=== PATIENT | female | born 1965 | race Caucasian/White ===

== ENCOUNTER → 2022-10-04 13:49 | Outpatient (BNVA) | payer OTHER, SELFPAY | PROVIDERS: Visit Provider Psychiatry & Neurology Psychiatry | DX: F41.1 Generalized anxiety disorder (principal); F34.1 Dysthymic disorder | CPT/HCPCS: 90833; 99212 ==

== ENCOUNTER → 2022-12-08 12:46 | Outpatient (BNVA) | payer BC, OTHER, SELFPAY | PROVIDERS: Visit Provider Psychiatry & Neurology Psychiatry ==

== ENCOUNTER 2023-10-15 11:41 | Outpatient (AMB) | payer BC, SELFPAY ==
--- NOTE | 2023-10-15 11:40 | A.OFFPSYCH_ITS ---
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 has been on vilazodone clonazepam Past Psychiatric History: hx depression anxiety worse around time of her marriage divorce Mental Status Exam Mental Status Exam Patient Appearance: Well Grooomed Patient Orientation: Person, Place and Situation Level of Consciousness: Awake Patient Behavior: Appropriate Mood Description: Depressed, Flat and Apprehensive Affect Description: Constricted Ability to Follow Directions: Good Speech Pattern: Clear Memory Description: Intact Hallucinations: None Delusions: Not Present Thought Process: Rumination Thought Content: positive for Logical Depressive Symptoms: Increased Anxiety and Loss of Energy Judgement: Good Judgement and Insight: Improved judgment and coping Assessment and Plan Assessment & Plan (1) Generalized anxiety disorder: Status: Acute Code(s): F41.1 - Generalized anxiety disorder (2) Dysthymic disorder: Status: Acute Code(s): F34.1 - Dysthymic disorder Plan pt has been feeling overwhelmed does not want to increase vilazodone was open to trial of doxepin for sleep risks benefits alternatives reviewed with patient has chronic issues related to her niece and her daughter her sister did move out and this had been stressful and problematic when she was living there patient tends to be somewhat dysthymic after a number of years now Medications: New doxepin 10 mg PO BEDTIME 30 caps 3RF Counseling and coordination of Care Details: I spent [] minutes reviewing the record, seeing the patient and documenting in the medical record. Counseling provided to the patient/caregiver as outlined below. Addressed patient/caregiver concerns regarding current medication regime including effective adherence. Addressed patient/caregiver concerns regarding diagnosis and prognosis including accuracy of diagnosis, prognosis over time, impact of diagnosis. Addressed patient/caregiver concerns regarding impact of recent stressors. [facility] Medical History (Updated 10/04/22 @ 13:14 by Amos Servin MD) Generalized anxiety disorder Dysthymic disorder Social History: pt has 2 daughters niece living with her mother anxiety disorder oldest anxiety depression ocd Substance History: ? Trauma History: na Coding Level of Care Code Est Pt Level 4 (87392) Diagnoses Generalized anxiety disorder F41.1 Dysthymic disorder F34.1
== END 2023-10-15 12:10 | disposition home or self-care (01) ==
LOC: HO.HOP 11:41
PROVIDERS: Visit Provider Psychiatry & Neurology Psychiatry
DX: F41.1 Generalized anxiety disorder (principal); F34.1 Dysthymic disorder
CPT/HCPCS: 99214

== ENCOUNTER → 2023-10-15 11:41 | Outpatient (BNVA) | payer BC, OTHER, SELFPAY | PROVIDERS: Visit Provider Psychiatry & Neurology Psychiatry ==

== ENCOUNTER 2024-02-21 10:51 | Outpatient (AMB) | payer BC, SELFPAY ==
--- NOTE | 2024-02-21 11:10 | MHC.OFFVISPS ---
Intake Intake Visit Reasons: depression Allergies No Known Allergies Allergy (Verified 08/24/22 21:54) Medication List - Last Reconciled 02/21/24 by Amos Servin MD clonazepam 0.25 - 0.5 mg (0.5 - 1 x 0.5 mg) PO DAILY PRN 90 days doxepin 10 mg PO BEDTIME propranolol 10 mg PO DAILY PRN 90 days vilazodone 10 mg PO DAILY 90 days HPI- Psychiatric Chief Complaint: depression HPI Narrative: Patient has changed her work setting feels quite supported in current setting. Has chronic difficulty with her daughter who is living with her and does also have chronic stress related to her niece who has been living with her now for number of years and who is having emotional difficulties patient has also been in a relationship and there have been some stress in trying to join family situations and integrating together. Some degree of chronic demoralization does run regularly which is a significant resource for the patient. Has some degree of chronic mild anxiety and mild dysphoria at times. Some difficulty with insomnia Past Psychiatric History: hx depression anxiety worse around time of her marriage divorce Mental Status Exam Mental Status Exam Patient Appearance: Well Grooomed Patient Orientation: Person, Place, Time and Situation Level of Consciousness: Awake Patient Behavior: Appropriate Mood Description: Flat and Apprehensive Affect Description: Constricted Ability to Follow Directions: Good Speech Pattern: Clear Memory Description: Intact Hallucinations: None Delusions: Not Present Thought Process: Rumination Thought Content: positive for Logical Depressive Symptoms: Increased Anxiety and Loss of Energy Judgement: Good Judgement and Insight: Improved judgment and coping but remains under chronic stress Assessment and Plan Assessment & Plan (1) Generalized anxiety disorder: Status: Acute Code(s): F41.1 - Generalized anxiety disorder (2) Dysthymic disorder: Status: Acute Code(s): F34.1 - Dysthymic disorder Plan Patient remains under chronic stress feeling a lot of pressure on herself especially relationship to being the primary breadwinner and managing emotional issues with her daughter and niece. In the past had been overusing alcohol denies issues with that at this time. Has seemed better with doxepin at HS for sleep reviewed potential side effects benefits continue vilazodone 10 mg Medications: Refilled doxepin 10 mg PO BEDTIME 30 caps 3RF vilazodone must administer with a meal/food 10 mg PO DAILY 90 tabs 1RF 90 days Counseling and coordination of Care Details-Self Mgmt counseling: Issues related to chronic stress issues related to family discord integrating boyfriend and relational issues Medication management counseling: Effectiveness and Side effects Diagnosis and Prognosis Counseling: Impact of diagnosis on life functions and Adequacy of current interventions Details: I spent [40] minutes reviewing the record, seeing the patient and documenting in the medical record. Counseling provided to the patient/caregiver as outlined below. Addressed patient/caregiver concerns regarding current medication regime including effective adherence. Addressed patient/caregiver concerns regarding diagnosis and prognosis including accuracy of diagnosis, prognosis over time, impact of diagnosis. Addressed patient/caregiver concerns regarding impact of recent stressors. [facility] Medical History (Updated 10/04/22 @ 13:14 by Amos Servin MD) Generalized anxiety disorder Dysthymic disorder Social History: pt has 2 daughters niece living with her mother anxiety disorder oldest anxiety depression ocd Substance History: ? Trauma History: na Coding Level of Care Code Est Pt Level 3 (60882) Therapy 30m w/E&M (23412) Diagnoses Generalized anxiety disorder F41.1 Dysthymic disorder F34.1
== END 2024-02-21 11:46 | disposition home or self-care (01) ==
LOC: HO.HOP 10:51
PROVIDERS: PCP Physician Assistant; Visit Provider Psychiatry & Neurology Psychiatry
DX: F41.1 Generalized anxiety disorder (principal); F34.1 Dysthymic disorder
CPT/HCPCS: 90833; 99213

== ENCOUNTER → 2024-02-21 10:51 | Outpatient (BNVA) | payer BC, SELFPAY | PROVIDERS: PCP Physician Assistant; Visit Provider Psychiatry & Neurology Psychiatry ==

== ENCOUNTER 2024-05-21 10:28 | Outpatient (AMB) | payer BC, SELFPAY ==
--- NOTE | 2024-05-21 10:46 | A.OFFPSYCH_ITS ---
Intake Intake Visit Reasons: depression Allergies No Known Allergies Allergy (Verified 08/24/22 21:54) HPI- Psychiatric Chief Complaint: depression HPI Narrative: Pt seen in psych f/u mood more depressed had recent break up in feb . her bf had been calm engaged a support. job feels like its chaos. Daughter now working ft may loose disability. Patient continues to do healthy things like running tries to care of herself physically, but often can feel overwhelmed and stressed. The breakup was quite stressful and felt that blue. She does feel overwhelmed with taking care of her daughter and her niece who live with her. 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 Patient does have elevated PHQ-9 no self-harming behavior elevated TOD she has been on vilazodone 10 mg she has had mirtazapine in the past doxepin at bedtime Past Psychiatric History: hx depression anxiety worse around time of her marriage divorce Mental Status Exam Mental Status Exam Narrative: Somewhat anxious and distressed in appearance Patient Appearance: Well Grooomed Patient Orientation: Person, Place, Time and Situation Level of Consciousness: Awake Patient Behavior: Appropriate Mood Description: Sad and Apprehensive Affect Description: Constricted Ability to Follow Directions: Good Speech Pattern: Clear Memory Description: Intact Hallucinations: None Delusions: Not Present Thought Process: Rumination and Goal Oriented Thought Content: positive for Perseveration and positive for Logical Depressive Symptoms: Increased Anxiety, Increased Irritability, Unhappiness, Increased Fatigue and Loss of Energy Judgement: Good Judgement and Insight: remains under chronic stress Assessment and Plan Assessment & Plan (1) Dysthymic disorder: Status: Acute Code(s): F34.1 - Dysthymic disorder (2) Generalized anxiety disorder: Status: Acute Code(s): F41.1 - Generalized anxiety disorder Plan Recommend increasing doxepin to tend to 20 mg at bedtime should help with anxiety and sleep vilazodone would increase to 20 mg daily administer with food for absorption. Patient has significant breakthrough depressive and anxiety symptoms strongly urged abstinence from alcohol does have clonazepam daily 0.5 as needed Medications: Changed From doxepin 10 mg PO BEDTIME 30 caps 3RF To doxepin 10 - 20 mg (1 - 2 x 10 mg) PO BEDTIME 30 caps 3RF From vilazodone must administer with a meal/food 10 mg PO DAILY 90 days 90 tabs 1RF To vilazodone must administer with a meal/food 20 mg PO DAILY 30 tabs 2RF 30 days Counseling and coordination of Care Pt. Self Management counseling: Breathing, Mindfulness and Sleep hygiene Details-Self Mgmt counseling: Recommend relaxation stress management skills issues related to chronic structure in her life Medication management counseling: Effectiveness, Side effects and Dosing range Diagnosis and Prognosis Counseling: Problematic behaviors secondary to diagnosis and Adequacy of current interventions Details: I spent [45] minutes reviewing the record, seeing the patient and documenting in the medical record. Counseling provided to the patient/caregiver as outlined below. Addressed patient/caregiver concerns regarding current medication regime including effective adherence. Addressed patient/caregiver concerns regarding diagnosis and prognosis including accuracy of diagnosis, prognosis over time, impact of diagnosis. Addressed patient/caregiver concerns regarding impact of recent stressors. [facility] Medical History (Updated 10/04/22 @ 13:14 by Amos Servin MD) Generalized anxiety disorder Dysthymic disorder Social History: pt has 2 daughters niece living with her mother anxiety disorder oldest anxiety depression ocd Substance History: ? Trauma History: na Coding Level of Care Code Est Pt Level 3 (58890) Therapy 30m w/E&M (95346) Diagnoses Dysthymic disorder F34.1 Generalized anxiety disorder F41.1
== END 2024-05-21 13:48 | disposition home or self-care (01) ==
LOC: HO.HOP 10:28
PROVIDERS: PCP Physician Assistant; Visit Provider Psychiatry & Neurology Psychiatry
DX: F34.1 Dysthymic disorder (principal); F41.1 Generalized anxiety disorder
CPT/HCPCS: 90833; 99213

== ENCOUNTER 2024-07-04 10:52 | Outpatient (AMB) | payer BC, SELFPAY ==
--- NOTE | 2024-07-04 11:05 | MHC.OFFVISPS ---
Intake Intake Visit Reasons: depression Allergies No Known Allergies Allergy (Verified 08/24/22 21:54) HPI- Psychiatric Chief Complaint: depression HPI Narrative: Pts mother was recently ill and needed st rehab pt has been inc stressed will be seeing caden dorman work and family life consultant bereket garcia . Still dwelling on issues related to recent breakup .Daughter is now working for vet another d is special procedure tech at same place. Taking 15 l methyl folate dealing with grief over breakup; Mother has hx anxiety was self absorbed when pt growing up. Patient has been having some increased anxiety rumination irritability dysphoria and some increase use of clonazepam denies alcohol use. Past history of some increase drinking when under stress does continue to run which is very helpful for stress management for the patient Past Psychiatric History: hx depression anxiety worse around time of her marriage divorce Mental Status Exam Mental Status Exam Narrative: Somewhat anxious and distressed in appearance Patient Appearance: Well Grooomed Patient Orientation: Person, Place, Time and Situation Level of Consciousness: Awake Patient Behavior: Appropriate and Anxious Mood Description: Depressed and Apprehensive Affect Description: Constricted Ability to Follow Directions: Good Speech Pattern: Clear Memory Description: Intact Hallucinations: None Delusions: Not Present Thought Process: Rumination and Goal Oriented Thought Content: positive for Perseveration, positive for Logical and negative for Homicidal Ideation Depressive Symptoms: Increased Anxiety, Increased Irritability, Difficulty Sleeping, Unhappiness, Increased Fatigue and Loss of Energy Judgement: Good Judgement and Insight: remains under chronic stress Assessment and Plan Assessment & Plan (1) Generalized anxiety disorder: Status: Acute Code(s): F41.1 - Generalized anxiety disorder (2) Dysthymic disorder: Status: Acute Code(s): F34.1 - Dysthymic disorder Plan does speak to her sister there patching up their relationship and patient encouraging her sister to have a more of relationship with the patient's name is her sister's daughter. Patient under chronic stress and anxiety Encourage doxepin 20 mg at bedtime vilazodone 20 mg low-dose clonazepam encourage doxepin for insomnia and help with anxiety Patient again facing abandonment issues in relationship to break up a few months ago number ongoing connection. Discussed importance of combined medication and psychotherapy vilazodone can be increased Phq 9 10 consider inc vilazadone 30 monitor ability to fx Counseling and coordination of Care Pt. Self Management counseling: Breathing, Exercise and Light exposure Medication management counseling: Effectiveness, Side effects and Dosing range Diagnosis and Prognosis Counseling: Accuracy of diagnosis, Impact of diagnosis on life functions, Problematic behaviors secondary to diagnosis and Adequacy of current interventions Details: I spent [40] minutes reviewing the record, seeing the patient and documenting in the medical record. Counseling provided to the patient/caregiver as outlined below. Addressed patient/caregiver concerns regarding current medication regime including effective adherence. Addressed patient/caregiver concerns regarding diagnosis and prognosis including accuracy of diagnosis, prognosis over time, impact of diagnosis. Addressed patient/caregiver concerns regarding impact of recent stressors. [facility] Medical History (Updated 10/04/22 @ 13:14 by Amos Servin MD) Generalized anxiety disorder Dysthymic disorder Social History: pt has 2 daughters niece living with her mother anxiety disorder oldest anxiety depression ocd Substance History: ? Trauma History: na Coding Level of Care Code Est Pt Level 3 (87606) Therapy 30m w/E&M (46169) Diagnoses Generalized anxiety disorder F41.1 Dysthymic disorder F34.1
== END 2024-07-04 11:42 | disposition home or self-care (01) ==
LOC: HO.HOP 10:52
PROVIDERS: PCP Physician Assistant; Visit Provider Psychiatry & Neurology Psychiatry
DX: F41.1 Generalized anxiety disorder (principal); F34.1 Dysthymic disorder
CPT/HCPCS: 90833; 99213

== ENCOUNTER → 2024-07-04 10:52 | Outpatient (BNVA) | payer BC, SELFPAY | PROVIDERS: PCP Physician Assistant; Visit Provider Psychiatry & Neurology Psychiatry ==

== ENCOUNTER 2024-09-15 10:34 | Outpatient (AMB) | payer BC, SELFPAY ==
--- NOTE | 2024-09-15 10:49 | MHC.OFFVISPS ---
Intake Intake Visit Reasons: depression Allergies No Known Allergies Allergy (Verified 08/24/22 21:54) HPI- Psychiatric Chief Complaint: depression HPI Narrative: Pt seen in f/u niece moved out youngest d moved in with her bf paying rent has been worried about her d and bf not working enough. Feels like starting to feel more nl niece is bipolar so its a relief to pt . Taking doxepin 10 mg hs vilazadone 20 mg daily. Pt is a daily runner which is a relief for her Does yoga daily e [employer] . Past Psychiatric History: hx depression anxiety worse around time of her marriage divorce Mental Status Exam Mental Status Exam Narrative: phq9-10 Patient Appearance: Well Grooomed Patient Orientation: Person, Place, Time and Situation Level of Consciousness: Awake Patient Behavior: Appropriate and Anxious Mood Description: Depressed and Apprehensive Affect Description: Constricted Ability to Follow Directions: Good Speech Pattern: Clear Memory Description: Intact Hallucinations: None Delusions: Not Present Thought Process: Rumination and Goal Oriented Thought Content: positive for Perseveration, positive for Logical and negative for Homicidal Ideation Depressive Symptoms: Increased Anxiety, Increased Irritability, Difficulty Sleeping, Unhappiness, Increased Fatigue and Loss of Energy Judgement: Good Judgement and Insight: remains under chronic stress Assessment and Plan Assessment & Plan (1) Dysthymic disorder: Status: Acute Code(s): F34.1 - Dysthymic disorder (2) Generalized anxiety disorder: Status: Acute Code(s): F41.1 - Generalized anxiety disorder Plan Pt has been doing somewhat better trying to work on skills coping strategies to manage stress related to work maintain strategies to manage anxiety continue doxepin at HS for sleep may help with anxiety vilazodone limit use of clonazepam Medications: Refilled doxepin 10 - 20 mg (1 - 2 x 10 mg) PO BEDTIME 30 caps 3RF vilazodone must administer with a meal/food 20 mg PO DAILY 30 tabs 2RF 30 days clonazepam 0.25 - 0.5 mg (0.5 - 1 x 0.5 mg) PO BID PRN 45 tabs 1RF anxiety 30 days MDD 0.75mg Counseling and coordination of Care Details-Self Mgmt counseling: Issues related to work chronic stress decision-making 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 Counseling provided to the patient/caregiver as outlined below. Addressed patient/caregiver concerns regarding current medication regime including effective adherence. Addressed patient/caregiver concerns regarding diagnosis and prognosis including accuracy of diagnosis, prognosis over time, impact of diagnosis. Addressed patient/caregiver concerns regarding impact of recent stressors. [facility] Medical History (Updated 10/04/22 @ 13:14 by Amos Servin MD) Generalized anxiety disorder Dysthymic disorder Social History: pt has 2 daughters niece living with her mother anxiety disorder oldest anxiety depression ocd Substance History: ? Trauma History: na Coding Level of Care Code Est Pt Level 3 (67206) Therapy 30m w/E&M ([id number]) Diagnoses Dysthymic disorder F34.1 Generalized anxiety disorder F41.1
== END 2024-09-15 11:10 | disposition home or self-care (01) ==
LOC: HO.HOP 10:34
PROVIDERS: PCP Physician Assistant; Visit Provider Psychiatry & Neurology Psychiatry
DX: F34.1 Dysthymic disorder (principal); F41.1 Generalized anxiety disorder
CPT/HCPCS: 90833; 99213

== ENCOUNTER → 2024-09-15 10:34 | Outpatient (BNVA) | payer BC, SELFPAY | PROVIDERS: PCP Physician Assistant; Visit Provider Psychiatry & Neurology Psychiatry ==

== ENCOUNTER 2025-01-26 12:00 | Outpatient (AMB) | payer BC, SELFPAY ==
--- NOTE | 2025-01-26 13:36 | A.OFFPSYCH_ITS ---
Intake Intake Visit Reasons: depression Allergies No Known Allergies Allergy (Verified 08/24/22 21:54) Medication List - Last Reconciled 01/26/25 by Amos Servin MD clonazepam 0.25 - 0.5 mg (0.5 - 1 x 0.5 mg) PO BID PRN 30 days MDD 0.75mg doxepin 10 - 20 mg (1 - 2 x 10 mg) PO BEDTIME propranolol 10 mg PO DAILY PRN 90 days vilazodone 30 mg (1.5 x 20 mg) PO DAILY 30 days HPI- Psychiatric Chief Complaint: depression HPI Narrative: Patient reports some degree of chronic anxiety and stress. 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 whom she states not really seem to know her position often makes her work much harder than it needs to be periods of dysphoria and anxiety patient has been on Viibryd 10 mg clonazepam occasional drink she states once in a blue farrell no daily drinking Past Psychiatric History: hx depression anxiety worse around time of her marriage divorce Mental Status Exam Mental Status Exam Patient Appearance: Well Grooomed Patient Orientation: Person, Place, Time and Situation Level of Consciousness: Awake Patient Behavior: Appropriate and Anxious Mood Description: Depressed and Apprehensive Affect Description: Constricted Ability to Follow Directions: Good Speech Pattern: Clear Memory Description: Intact Hallucinations: None Delusions: Not Present Thought Process: Rumination and Goal Oriented Thought Content: positive for Perseveration, positive for Logical and negative for Homicidal Ideation Depressive Symptoms: Increased Anxiety, Increased Irritability, Difficulty Sleeping, Unhappiness, Increased Fatigue and Loss of Energy Judgement: Fair Judgement and Insight: remains under chronic stress feels currently trapped Telehealth Telehealth Location of provider rendering services: practice address Location of patient: address on file Patient Identification confirmed using: Name, : Yes Telehealth method: video Patient verbally consented to treatment: Yes Patient verbally consented to billing insurance company: Yes Minutes spent on Phone/Video with Pt.: 22 Assessment and Plan Assessment & Plan (1) Dysthymic disorder: Status: Acute Code(s): F34.1 - Dysthymic disorder (2) Generalized anxiety disorder: Status: Acute Code(s): F41.1 - Generalized anxiety disorder Plan Increase vilazodone 30 mg has significant anxiety and depressive symptoms. Patient feels trapped in her current work setting this appears to replicate a recurrent pattern over a number of years. Strongly urged relaxation strategies running yoga and would recommend regular counseling together we look at ways for the patient to move from this toxic environment or find other ways to manage which she seems not able to do at this time. Medications: Changed From vilazodone must administer with a meal/food 20 mg PO DAILY 30 days 30 tabs 2RF To vilazodone must administer with a meal/food 30 mg (1.5 x 20 mg) PO DAILY 45 tabs 2RF 30 days Counseling and coordination of Care Details-Self Mgmt counseling: Issues related to chronic stress chronic work stress issues related to mother. 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 Details: I spent [] minutes reviewing the record, seeing the patient and documenting in the medical record. Counseling provided to the patient/caregiver as outlined below. Addressed patient/caregiver concerns regarding current medication regime including effective adherence. Addressed patient/caregiver concerns regarding diagnosis and prognosis including accuracy of diagnosis, prognosis over time, impact of diagnosis. Addressed patient/caregiver concerns regarding impact of recent stressors. [facility] Medical History (Updated 10/04/22 @ 13:14 by Amos Servin MD) Generalized anxiety disorder Dysthymic disorder Social History: pt has 2 daughters niece living with her mother anxiety disorder oldest anxiety depression ocd Substance History: ? Trauma History: na Coding Level of Care Code Est Pt Level 3 (75226) Tele Therapy 30m w/E&M (66640) Diagnoses Dysthymic disorder F34.1 Generalized anxiety disorder F41.1
== END 2025-01-26 12:30 | disposition home or self-care (01) ==
PROVIDERS: PCP Physician Assistant; Visit Provider Psychiatry & Neurology Psychiatry
DX: F34.1 Dysthymic disorder (principal); F41.1 Generalized anxiety disorder
CPT/HCPCS: 90833; 99213

== ENCOUNTER 2025-05-27 11:27 | Outpatient (AMB) | payer BC, SELFPAY ==
--- NOTE | 2025-05-27 11:11 | A.OFFPSYCH_ITS ---
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 did discuss with pt reason for multiple changes in job will be getting training can pay her mortgage did have fmla mother oxygen dependant mother in [place] living sister engaged niece has moved out younger daughter moved back in had energency surgery had ovarian ca 33 yo feels ok with daughter moving in Past Psychiatric History: hx depression anxiety worse around time of her marriage divorce Mental Status Exam Mental Status Exam Patient Appearance: Well Grooomed Patient Orientation: Person, Place, Time and Situation Level of Consciousness: Awake Patient Behavior: Appropriate and Anxious Mood Description: Depressed and Apprehensive Affect Description: Constricted Ability to Follow Directions: Good Speech Pattern: Clear Memory Description: Intact Hallucinations: None Delusions: Not Present Thought Process: Rumination and Goal Oriented Thought Content: positive for Perseveration, positive for Logical and negative for Homicidal Ideation Depressive Symptoms: Increased Anxiety, Increased Irritability and Difficulty Sleeping Judgement: Fair Telehealth Telehealth Location of provider rendering services: practice address Location of patient: address on file Patient Identification confirmed using: Name, : Yes Telehealth method: video Patient verbally consented to treatment: Yes Patient verbally consented to billing insurance company: Yes Minutes spent on Phone/Video with Pt.: 16 Assessment and Plan Assessment & Plan (1) Dysthymic disorder: Status: Acute Code(s): F34.1 - Dysthymic disorder (2) Generalized anxiety disorder: Status: Acute Code(s): F41.1 - Generalized anxiety disorder Plan Assessment: The patient presents with concerns about elevated blood pressure and anxiety, potentially exacerbated by dental visits and current medication regimen. The elevated blood pressure may be related to anxiety or potentially to long-term use of bupropion. The patient's anxiety, particularly at night, is contributing to poor sleep quality and increased stress levels. Plan: 1. Initiate mirtazapine at 15 mg, starting with half a tablet at bedtime to help with anxiety and sleep. Monitor for side effects such as sedation and increased appetite. 2. Continue lorazepam as needed for acute anxiety until mirtazapine takes effect. 3. Discontinue plans to restart escitalopram for now. 4. Schedule a follow-up video appointment in two weeks to assess response to mirtazapine and adjust as needed. 5. Avoid alcohol consumption while on mirtazapine and use caution when driving if feeling sedated. 6. Instruct the patient to contact the office through the portal or call if there are any issues or side effects with the new medication regimen. Medications: Changed From vilazodone must administer with a meal/food 30 mg (1.5 x 20 mg) PO DAILY 30 days 45 tabs 2RF To vilazodone must administer with a meal/food 20 mg PO DAILY 30 tabs 2RF 30 days Refilled clonazepam 0.25 - 0.5 mg (0.5 - 1 x 0.5 mg) PO BID PRN 45 tabs 2RF anxiety 30 days MDD 0.75mg doxepin 10 - 20 mg (1 - 2 x 10 mg) PO BEDTIME 30 caps 3RF Counseling and coordination of Care Diagnosis and Prognosis Counseling: Adequacy of current interventions Details: I spent [22] minutes reviewing the record, seeing the patient and documenting in the medical record. Counseling provided to the patient/caregiver as outlined below. Addressed patient/caregiver concerns regarding current medication regime including effective adherence. Addressed patient/caregiver concerns regarding diagnosis and prognosis including accuracy of diagnosis, prognosis over time, impact of diagnosis. Addressed patient/caregiver concerns regarding impact of recent stressors. [facility] Medical History (Updated 10/04/22 @ 13:14 by Amos Servin MD) Generalized anxiety disorder Dysthymic disorder Social History: pt has 2 daughters niece living with her mother anxiety disorder oldest anxiety depression ocd Substance History: ? Trauma History: na Coding Level of Care Code Tele Est Pt Level 4 (23288) Diagnoses Dysthymic disorder F34.1 Generalized anxiety disorder F41.1
--- OUTSIDE RECORDS SUMMARY | 2025-05-27 11:33 | XMS_ITS | Data Portability ---
Author Organization [facility], [facility] Address [address] [place] [address] Care Team Providers Care Bacteriologist Dairy Name Role Phone Stanislaw Martinez Primary Care Provider Assessment No assessment recorded. Plan of Treatment Reminders Order Date Submit Date Provider Name Organization Details Last Modified By Last Modified Time Details Appointments None record ed. Lab None record ed. Referral None record ed. Procedures None record ed. Surgeries None record ed. Imaging None record ed. MedicationOrders None record ed. VaccineOrders None record ed. Patient TargetsNo targets recorded. Patient InstructionsNo instructions recorded. Reason for Referral None Reported. Problems Name Problem SNOMED Code Status Onset Date Resolution Date Notes Provider Name and Address Organization Details Recorded Time No complaints [id number] Active Status : 'I'; Not Available [facility] 4 09:15:56 Problem Notes None recorded. Procedures Surgical History Date Name Laterality Status Provider Name and Address Organization Details Recorded Time 5 JZHip Inj completed Bakari Fong PA-C [address], [place], [address], [facility] 05/22/2025 08:42:17 5 Hip Kenalog 1cc Injection, Bilateral completed Bakari Fong PA-C [address], [place], [address], [facility] 10/07/2024 11:50:20 4 Hip Kenalog 1cc Injection, Bilateral completed Bakari Fong PA-C [address], [place], [address], [facility] 05/09/2024 08:23:57 4 Hip Kenalog 2cc Injection, Bilateral completed Bakari Fong PA-C [address], [place], [address], [facility] 09/28/2023 11:01:14 Imaging Results None recorded. Procedure Notes None recorded. Medical Equipment None Reported. Medications Name Authored On Sig Start Date Stop Date Status Note Indication Fill Status Repeat Number Dispense Quantity LastModified by Organization Details LastModified Time benzo natat e 100 mg capsu le 4 09:09:35 TAKE 1 CAPS ULE BY DUC Bloom THRE E TIME S MIGUEL Y FOR 7 DAYS active Not Available Not availab le 0 Not Available Not Available [facility] 09/28/2023 09:09:35 predn isone 10 mg table t 4 09:09:35 TAKE 6 TABL ETS BY MOUT H X 3DAY S 4 TABL ETS BY MOUT H X3DA YS 2 TABL ETS BY MOUT H X3DA YS THEN 1 TABL ET BY MOUT H X3DA YS active Not Available Not availab le 0 Not Available Not Available [facility] 09/28/2023 09:09:35 propr anolo l 10 mg table t 4 09:09:35 active Not Available Not availab le 0 Not Available Not Available [facility] 09/28/2023 09:09:35 vilaz odone 10 mg table t 4 09:09:35 active Not Available Not availab le 0 Not Available Not Available [facility] 09/28/2023 09:09:35 Estri ng 4 09:05:39 Estr ing 7.5M CG/2 4HR Ring 2022 active Statu s: 'Curr ent'; Not Available Not availab le 0 Not Available Not Available [facility] 11/27/2023 09:05:39 doxep in 10 mg capsu le 5 22:37:38 TAKE 1 TO 2 CAPS ULES BY DUC Bloom AT BEDT MARISSA active Not Available Not availab le 0 Not Available Not Available damon - External Data Service - prod 10/09/2024 22:37:38 vilaz odone 20 mg table t 5 22:37:38 TAKE 1 TABL ET BY MOUT H MIGUEL Y active Not Available Not availab le 0 Not Available Not Available damon - External Data Service - prod 10/09/2024 22:37:38 clona zepam 0.5 mg table t 5 15:54:21 TAKE 0.5- 1 TABL ET BY MOUT H TWIC E MIGUEL Y NEED ED NEED ED FOR ANXI ETY FOR 30 DAYS MAXI MUM MIGUEL Y DOSE IS 1.5 TABL ET active Not Available Not availab le 0 Not Available Not Available damon - External Data Service - prod 05/20/2025 15:54:21 estra diol 0.05 mg/24 hr semiw eekly trans derma l patch 15:54:21 APPL Y 1 PATC H TOPI CALL Y TO THE SKIN 2 TIME S A WEEK active Not Available Not availab le 0 Not Available Not Available damon - External Data Service - prod 05/20/2025 15:54:21 Estri ng 2 mg (7.5 mcg/2 4 hour) vagin al ring 15:54:21 INSE RT 1 RING INTO THE VAGI NA AND REPL WESLEY EVER Y 90 DAYS active Not Available Not availab le 0 Not Available Not Available damon - External Data Service - prod 05/20/2025 15:54:21 valac yclov ir 500 mg table t 5 15:54:21 TAKE 1 TABL ET BY MOUT H MIGUEL Y PLEN TY OF FLUI DS active Not Available Not availab le 0 Not Available Not Available damon - External Data Service - prod 05/20/2025 15:54:21 cyclo benza luis eduardo 5 mg table t 5 15:54:22 TAKE 1 TABL ET BY MOUT H THRE E TIME S MIGUEL Y FOR 7 DAYS active Not Available Not availab le 0 Not Available Not Available damon - External Data Service - prod 05/20/2025 15:54:22 proge stero ne micro nized 200 mg capsu le 12/17/202 5 15:54:22 TAKE 1 CAPS ULE BY DUC Moreira active Not Available Not availab le 0 Not Available Not Available damon - External Data Service - prod 05/20/2025 15:54:22 valac yclov ir 1 gram table t 15:54:22 TAKE 1 TABL ET BY DUC Bloom THRE E TIME S MIGUEL Y FOR 10 DAYS active Not Available Not availab le 0 Not Available Not Available damon - External Data Service - prod 05/20/2025 15:54:22 Vitals Date Recorded Body height Body mass index (BMI) Body weight Provider Name and Address Organization Details Last Updated DateTime 09/28/2023 157.48 cm 20.1 kg/m2 50785.16 g Adriana Jett [facility] 09/28/2023 09:14:34 Date Recorded Body height Body mass index (BMI) Body weight Provider Name and Address Organization Details Last Updated DateTime 10/10/2024 157.48 cm 20.1 kg/m2 68091.16 g Cheyenne Luzmaria [facility] 10/10/2024 09:22:16 Date Recorded Body height Body mass index (BMI) Body weight Provider Name and Address Organization Details Last Updated DateTime 05/09/2024 157.48 cm 20.1 kg/m2 96614.16 g Cheyenne Luzmaria [facility] 05/09/2024 08:36:33 Date Recorded Body height Body mass index (BMI) Body weight Provider Name and Address Organization Details Last Updated DateTime 05/22/2025 157.48 cm 20.1 kg/m2 33857.16 g Cheyenne Luzmaria [facility] 05/22/2025 08:32:32 Social History Social History Observation Description Date Observed Sex Unknown 05/22/2025 Legal Sex Female Status Not (finding) 05/27/20 25 No social history survey screeners recorded No social history SDOH screeners recorded Functional Status None recorded. No Functional Screening assessment recorded No Functional SDOH screeners recorded Mental Status None recorded. No Mental Screening assessment recorded No Mental SDOH screeners recorded Family History Nothing Reported. Medical History No medical history recorded. Gynecological HistoryNo gynecological history recorded. Obstetrics History GPAL:G 0 P 0 0 0 0 Past Encounters Encounter ID Performer Location Encounter Start Date Encounter Closed Date Diagnosis/Indication Diagnosis SNOMED-CT Code Diagnosis ICD10 Code Diagnosis IMO Codes Diagnosis Note [id number] Bakari Fong PA-C [place] [address] [place] [address] 09/28/2023 09:05:43 09/28/2023 11:03:41 Trochanteric bursitis of right hip [id number] 96445 M70.61 Trochanter ic bursitis of left hip 4230964363 34914 M70.62 [id number] Bakari Fong PA-C [place] [address] [place] [address] 05/09/2024 08:26:11 06/09/2024 12:17:37 Bilateral trochanteric bursitis [id number] M70.61 M70.62 [id number] Bakari Fong PA-C [facility] [address] [place] [address] 10/10/2024 09:19:39 10/23/2024 15:32:13 Bilateral trochanteric bursitis [id number] 5106988 M70.61 M70.62 [id number] Bakari Fong PA-C [facility] [address] [place] [address] 05/22/2025 08:25:20 05/22/2025 08:42:41 Bilateral trochanteric bursitis [id number] M70.61 M70.62 [id number] Health Concerns Section Related Observation LastModified by Organization Detai ls LastModified Time None Recorded Concern Status LastModified by Organization Details LastModified Time None Recorded SDOH Concern Status LastModified by Organization Detai ls LastModified Time None Recorded Advance Directives Directive None Recorded Payers Insurance Date Sequence Insurance Name Policy Number Policy Gamb[place] Covered Member ID Gamboa Member ID Guarantor Name 05/26/2025 1 [employer]ILL[employer]FARNAZ (PPO) [id number] Shahbaz Iqbal [id number] Shahbaz Iqbal Notes Date Note Type Note Provider Name and Address Organization Details Recorded Time 09/28/2023 text/html I am seeing the patient today under the supervision of Dr. Mcclendon who was available but who did not see the patient. HPI: The patient returns for follow-up of bilateral hip pain. The history is outlined by previous notes. The patient has recurrent pain over the lateral aspect of the both hips. Past family, medical, social history and review of systems has been reviewed, updated and is located in the patient s chart. Examination: The patient is well appearing and in no apparent distress. Alert and oriented x3. Gait is symmetric. No significant swelling warmth or erythema about both hips. Mild tenderness of the greater trochanter of the both hips. Full range of motion of the right hip with mild pain. Good strength and stability of the both hips. Peripheral, vascular, lymphatic examination, skin, neurological, coordination, reflexes, sensation are within normal limits. Impression: Greater trochanteric bursitis of the both hips Plan: Reviewed diagnosis with the patient today in the office. Recommended conservative management regards to the hip bursitis. Reviewed home excise program. Activity modification discussed. P.r.n. NSAIDs can be used. Injected the greater trochanteric bursa of both hips. Injected 80 mg of Kenalog, and 8 cc of 1/4% Marcaine. Follow up p.r.n. Bakari Fong PA-C [address] [place] [address], [place], [address], [facility] 09/28/2023 11:01:46 05/09/2024 text/html I am seeing the patient today under the supervision of Dr. Frost who was available but who did not see the patient. HPI: The patient returns for follow-up of bilateral hip pain. The history is outlined by previous notes. The patient has recurrent pain over the lateral aspect of the both hips. Past family, medical, social history and review of systems has been reviewed, updated and is located in the patient s chart. Examination: The patient is well appearing and in no apparent distress. Alert and oriented x3. Gait is symmetric. No significant swelling warmth or erythema about both hips. Mild tenderness of the greater trochanter of the both hips. Full range of motion of the right hip with mild pain. Good strength and stability of the both hips. Peripheral, vascular, lymphatic examination, skin, neurological, coordination, reflexes, sensation are within normal limits. Impression: Greater trochanteric bursitis of the both hips Plan: Reviewed diagnosis with the patient today in the office. Recommended conservative management regards to the hip bursitis. Reviewed home excise program. Activity modification discussed. P.r.n. NSAIDs can be used. Injected the greater trochanteric bursa of both hips. Follow up p.r.n. Bakari Fong PA-C [address], [place], [address], [facility] 05/09/2024 08:49:57 10/10/2024 text/html I am seeing the patient today under the supervision of Dr. Mcclendon who was available but who did not see the patient. HPI: The patient returns for follow-up of bilateral hip pain. The history is outlined by previous notes. The patient has recurrent pain over the lateral aspect of the both hips. Past family, medical, social history and review of systems has been reviewed, updated and is located in the patient s chart. Examination: The patient is well appearing and in no apparent distress. Alert and oriented x3. Gait is symmetric. No significant swelling warmth or erythema about both hips. Mild tenderness of the greater trochanter of the both hips. Full range of motion of the right hip with mild pain. Good strength and stability of the both hips. Peripheral, vascular, lymphatic examination, skin, neurological, coordination, reflexes, sensation are within normal limits. Impression: Greater trochanteric bursitis of the both hips Plan: Reviewed diagnosis with the patient today in the office. Recommended conservative management regards to the hip bursitis. Reviewed home excise program. Activity modification discussed. P.r.n. NSAIDs can be used. Injected the greater trochanteric bursa of both hips. Follow up p.r.n. Bakari Fong PA-C [address], [place], [address], [facility] 10/10/2024 09:45:56 05/22/2025 text/html I am seeing the patient today under the supervision of Dr. Mcclendon who was available but who did not see the patient. HPI: The patient returns for follow-up of bilateral hip pain. The history is outlined by previous notes. The patient has recurrent pain over the lateral aspect of the both hips. Past family, medical, social history and review of systems has been reviewed, updated and is located in the patient s chart. Examination: The patient is well appearing and in no apparent distress. Alert and oriented x3. Gait is symmetric. No significant swelling warmth or erythema about both hips. Mild tenderness of the greater trochanter of the both hips. Full range of motion of the right hip with mild pain. Good strength and stability of the both hips. Peripheral, vascular, lymphatic examination, skin, neurological, coordination, reflexes, sensation are within normal limits. Impression: Greater trochanteric bursitis of the both hips Plan: Reviewed diagnosis with the patient today in the office. Recommended conservative management regards to the hip bursitis. Reviewed home excise program. Activity modification discussed. P.r.n. NSAIDs can be used. Injected the greater trochanteric bursa of both hips. Follow up p.r.n. DARA Puentes-C [address] [place] [address] [address], [place], [address], [facility] 05/22/2025 08:42:39 Care Team Name Role Member ID Specialty Address Phone STANISLAW DIAMOND Primary Care Provider [phone] [facility], [place], [place] OBGyn Episode No OBEpisode recorded.
--- OUTSIDE RECORDS SUMMARY | 2025-05-27 11:33 | XMS_ITS | Continuity of Care Document ---
Author Organization [facility], [facility] [address] Address [address] [place] [address] Care Team Providers Care Work Study Student Name Role Phone JuanStanislaw kolb Primary Care Provider [phone] Assessment No assessment recorded. Plan of Treatment [...] Address Organization Details Recorded Time No complaints [id number] Active Status : 'I'; Not Available [facility] 4 09:15:56 Problem Notes None recorded. Procedures Surgical History Date Name Laterality Status Provider Name and Address Organization Details Recorded Time 5 JZHip Inj completed Bakari Fong PA-C [address], [place], [address], [facility] 05/22/2025 08:42:17 5 Hip Kenalog 1cc Injection, Bilateral completed Bakari Fong PA-C [address], [place], [address], [facility] 10/07/2024 11:50:20 4 Hip Kenalog 1cc Injection, Bilateral completed Bakari Fong PA-C [address], [place], [address], [facility] 05/09/2024 08:23:57 4 Hip Kenalog 2cc Injection, Bilateral completed Bakari Fong PA-C [address], [place], [address], [facility] 09/28/2023 11:01:14 Imaging [...] availab le 0 Not Available Not Available [facility] 09/28/2023 09:09:35 predn isone 10 mg table t 4 09:09:35 TAKE 6 TABL ETS BY MODARION H X 3DAY S 4 TABL ETS BY MOUT H X3DA YS 2 TABL ETS BY MODARION H X3DA YS THEN 1 TABL ET BY MOUT H X3DA YS active Not Available Not availab le 0 Not Available Not Available [facility] 09/28/2023 09:09:35 propr anolo l 10 mg table t 4 09:09:35 active Not Available Not availab le 0 Not Available Not Available [facility] 09/28/2023 09:09:35 vilaz odone 10 mg table t 4 09:09:35 active Not Available Not availab le 0 Not Available Not Available [facility] 09/28/2023 09:09:35 Estri ng 4 09:05:39 Estr ing 7.5M CG/2 4HR Ring 2022 active Statu s: 'Curr ent'; Not Available Not availab le 0 Not Available Not Available [facility] 11/27/2023 09:05:39 doxep in 10 mg capsu le 5 22:37:38 TAKE 1 TO 2 CAPS ULES BY MOUT H AT BEDT MARISSA active Not Available Not availab le 0 Not Available Not Available damon - External Data Service - prod 10/09/2024 22:37:38 vilaz odone 20 mg table t 22:37:38 TAKE 1 TABL ET BY MOUT H MIGUEL Y active Not Available Not availab le 0 Not Available Not Available damon - External Data Service - prod 10/09/2024 22:37:38 clona zepam 0.5 mg table t 15:54:21 TAKE 0.5- 1 TABL ET BY [...] benza luis eduardo 5 mg table t 15:54:22 TAKE 1 TABL ET BY MOUT H THRE E TIME S MIGUEL Y FOR 7 DAYS active Not Available Not availab le 0 Not Available Not Available damon - External Data Service - prod 05/20/2025 15:54:22 proge stero ne micro nized 200 mg capsu le 15:54:22 TAKE 1 CAPS ULE BY DUC [...] Updated DateTime 05/22/2025 157.48 cm 20.1 kg/m2 23456.16 g Cheyenne Dutta [place] [facility] 05/22/2025 08:32:32 Social History Social History Observation [...] ICD10 Code Diagnosis IMO Codes Diagnosis Note [id number] GERTRUDIS Puentes [address] [place] [place] [address] 05/22/2025 08:25:20 05/22/2025 08:42:41 Bilateral trochanteric bursitis [id number] M70.61 M70.62 [id number] Health Concerns Section Related Observation LastModified by Organization Ileana kapoor LastModified Time None Recorded Concern Status LastModified by Organization Details LastModified Time None Recorded SDOH Concern Status LastModified by Organization Detkalani LastModified Time None Recorded Payers Encounter Date Sequence Insurance Name Policy Number Policy Gamboa Covered Member ID Gamb[place] Member ID Guarantor Name 05/22/2025 1 [employer] [id number] Shahbaz Harvey [id number] Shahbaz Harvey Notes Date Note Type Note Provider Name and Address Organization Details Recorded Time 05/22/2025 text/html I am seeing the patient [...] Follow up p.r.n. Bakari Fong PA-C [address] [facility] [address], [place], [address], [facility] 05/22/2025 08:42:39 Care Team Name Role Member ID Specialty Address Phone STANISLAW DIAMOND Primary Care Provider [phone] [facility], [place], [place] OBGyn Episode No OBEpisode recorded.
== END 2025-05-27 11:28 | disposition home or self-care (01) ==
LOC: HO.HOP 11:27
PROVIDERS: PCP Physician Assistant; Visit Provider Psychiatry & Neurology Psychiatry
DX: F34.1 Dysthymic disorder (principal); F41.1 Generalized anxiety disorder
CPT/HCPCS: 99214